=== PATIENT | male | born 1970 | race Caucasian/White ===

== ENCOUNTER 2020-03-05 08:52 | Outpatient (CLI) | payer BC, SELFPAY ==
--- NOTE | 2020-03-05 08:59 | XR_ITS ---
WS: [id number] Left knee, AP and lateral views, 03/05/2020 Clinical Data: CHRONIC PAIN OF BOTH KNEES Comparison: Left knee x-ray, 12/17/2014. Findings: There is narrowing of the medial joint compartment with osteoarthritic spurring of the medial tibial plateau and medial femoral condyle. The posterior patella shows large spurs. There is moderate narrow ing of the lateral joint compartment. No fractures are seen. The soft tissues are normal. XR/XR knee LT 1-2V [id number] Impression: Severe osteoarthritic change of the left knee which remains same.
--- NOTE | 2020-03-05 08:59 | XR_ITS ---
WS: [id number] Right knee, AP and lateral views, 03/05/2020 Clinical Data: CHRONIC PAIN OF BOTH KNEES Comparison: Right knee, 12/17/2014. Findings: There is severe medial joint compartment narrowing. Moderate osteoarthritic change of the lateral wilbert nt compartment is seen. There are large posterior patellar spurs. Soft tissues are unremarkable. Ther e are no fractures or dislocations. XR/XR knee RT 1-2V 83106 Impression: Severe osteoarthritis of the right knee unchanged.
== END 2020-03-05 08:53 | disposition home or self-care (01) ==
LOC: RAD 08:58
PROVIDERS: PCP Registered Nurse; Visit Provider Registered Nurse
DX: M25.561 Pain in right knee (principal); M25.562 Pain in left knee; G89.29 Other chronic pain
CPT/HCPCS: 73560

== ENCOUNTER 2020-07-11 19:52 | Emergency (ER) | payer BC, SELFPAY ==
[2020-07-11 20:00] VITALS: BP 168/94; PULSE 109; RESP 18; TEMP 36.9; O2SAT 95; BMI 59.3
--- NOTE | 2020-07-11 20:41 | W.ED.SKABFB ---
HPI - Skin/Abscess/Foreign Bdy General: Chief complaint: Skin/Abscess/Foreign Body Stated complaint: rash Time Seen by Provider: 07/11/20 20:41 Source: patient Mode of arrival: ambulatory Limitations: no limitations History of Present Illness: HPI narrative: Patient started feeling poorly 3 to 4 days ago. Spouse states that he had a fever up to 103. Patient been seen at the COVID testing tent and was told that he was COVID negative. Today they noticed redness and erythema to the abdomen surrounding the umbilical hernia site. Patient appears unwell. Patient appears in no pain. Patient has a history of morbid obesity, umbilical hernia, osteoarthritis, hypertension. Review of Systems General: Reports: 10 or more systems reviewed and unremarkable except in HPI and below Skin/Breast: Reports: erythema Physical Exam Const: COMMON NORMALS: no acute distress and patient oriented x3 GENERAL APPEARANCE: cooperative HENMT: COMMON NORMALS: normocephalic and Normal external nose present HEAD & SCALP: normal to inspection and normocephalic NOSE: Normal external nose present MOUTH: Normal oral and palatal mucosa present THROAT: posterior oropharynx normal Eye: GENERAL EYE: appearance normal, both eyes and all related structures Neck/C-Spine: COMMON NORMALS: full ROM Chest: COMMONS NORMALS: normal inspection of the chest Resp: COMMON NORMALS: normal respiratory effort EFFORT & INSPECTION: Yes able to speak in complete sentences Cardio: COMMON NORMALS: regular rate and regular rhythm RATE: regular rate RHYTHM: regular rhythm GI: COMMON NORMALS: non-tender : COMMON NORMALS: Yes no CVA tenderness BLADDER/KIDNEY EXAM: Yes no CVA tenderness Back/Pelvis: COMMON NORMALS: no CVA tenderness and thoracic and lumbar spine normal to inspection Extremity: COMMON NORMALS: normal to inspection Neuro: COMMON NORMALS: patient oriented x3 and moves all extremities Psych: COMMON NORMALS: mental status grossly normal and cooperative Skin: NARRATIVE SKIN EXAM: Large area of erythema greater than 30 cm surrounding the umbilical hernia. Patient has a central crusted lesion to the hernia dome. Erythema is greater on the right than the left side. There is some ecchymosis on the distal edges of the right side of the erythema. Mild tenderness is noted with deep palpation. Respirations are even. Vital signs are stable. Course Vital Signs: Vital signs: Vital Signs Temperature 100.5 F H 07/11/20 21:05 Pulse Rate 93 07/11/20 22:00 Respiratory Rate 18 07/11/20 22:00 Blood Pressure 157/89 07/11/20 22:00 Pulse Oximetry 95 07/11/20 22:00 MDM - Skin/Abscess/Foreign Bdy MDM Narrative: Medical decision making narrative: Patient came in today for persistent fever. Patient had been tested for COVID 3 days ago and was negative. Patient just had the symptoms of the fever that he was concerned about. Today they noted some redness and inflammation to the lower abdominal wall. On exam patient has a umbilical hernia. Patient denies any problems with bowel or bladder issues. Patient has some mild tenderness to the area of redness. Differential diagnosis includes but not limited to cellulitis, sepsis, abscess, umbilical hernia. Laboratory values were unremarkable. Suspect probable cellulitis of the abdominal wall. Patient did have a wound to his protrusion from his umbilical hernia that was about a month old spouse said. She said it looked like it was getting better but now patient has developed the erythema to the surrounding area from the wound. Patient was medicated with ceftriaxone 2 g and 900 mg of clindamycin. We will continue patient on double coverage with cephalexin and clindamycin. Ultrasound of the area did not note an abscess formation at this time. No GI complaints were noted at this time and no significant abdominal pain not considering suspicion for strangulated hernia at this time then. Reviewed with patient recommendations and need for return or follow-up. Patient reported understanding. Lab Data: Labs: Lab Results 07/11/20 07/11/20 07/11/20 Range/Units 21:00 21:09 21:09 WBC 9.6 (4.0-10.0) 10^3/ uL RBC 4.77 (4.1-5.3) 10^6/u L Hgb 14.3 (11.7-16.6) g/dL Hct 44.8 (42.0-52.0) % MCV 93.9 (80-94) fL MCH 30.0 (28.0-34.0) pg MCHC 31.9 (30.0-36.0) g/dL RDW 13.2 (12.1-15.1) % Plt Count 154 (130-400) 10^3/c mm MPV 10.8 H (7.4-10.4) fL Neut % (Auto) 84.2 % Lymph % (Auto) 9.5 % [place] % (Auto) 5.7 % Eos % (Auto) 0.0 % Baso % (Auto) 0.3 % Neut # (Auto) 8.07 H (1.8-7.7) 10^3/u L Lymph # (Auto) 0.9 (0.8-4.8) 10^3/u L [place] # (Auto) 0.6 (0.2-0.9) 10^3/u L Eos # (Auto) 0.0 (0.0-0.8) 10^3/u L Baso # (Auto) 0.0 (0.0-0.1) 10^3/u L Nucleated RBC % (a uto) 0 % Nucleated RBCs # 0.0 /100WBC Sodium 129 L (136-145) mmol/L Potassium 3.6 (3.5-5.1) mmol/L Chloride 94 L (98-107) mmol/L Carbon Dioxide 25 (22-29) mmol/L Anion Gap 13.6 (5-19) BUN 11 (6-20) mg/dL Creatinine 0.7 (0.7-1.2) mg/dL GFR Calculation 120.4 (90-130) mL/min Glucose 140 H (65-115) mg/dL Calculated Osmolal ity 270 L (285-295) mOsm/k g Lactic Acid (0.5-2.2) mmol/L Calcium 9.0 (8.5-10.5) mg/dL Total Bilirubin 0.5 (0.15-1.2) mg/dL AST 31 (0-40) U/L ALT 46 H (0-41) U/L Alkaline Phosphata se 62 (40-130) IU/L Total Protein 7.8 (6.6-8.7) g/dL Albumin 3.6 (3.5-5.2) g/dL Globulin 4.2 (1.3-4.6) g/dL Urine Color Yellow (Yellow) Urine Appearance Clear (CLEAR) Urine pH 5 (5-7) Ur Specific Gravit y 1.015 (1.005-1.030) Urine Protein 1+ H (Negative) Urine Glucose (UA) Norm (Normal) Urine Ketones 1+ H (Negative) Urine Blood 2+ H (Negative) Urine Nitrate Negative (Negative) Urine Bilirubin 1+ H (Negative) Urine Urobilinogen 1 H (Negative) mg/dL Ur Leukocyte Rochelle ase Negative (Negative) Urine RBC 0-4 H (0-2) /hpf Urine WBC 0-4 H (0-5) /hpf Ur Squamous Epith Cells 5-10 H (0-5) /hpf Amorphous Sediment Not Reportable Urine Bacteria Trace (NONE) /hpf Hyaline Casts 0-4 H /lpf Urine Mucus 2+ /hpf 07/11/20 Range/Units 21:09 WBC (4.0-10.0) 10^3/ uL RBC (4.1-5.3) 10^6/u L Hgb (11.7-16.6) g/dL Hct (42.0-52.0) % MCV (80-94) fL MCH (28.0-34.0) pg MCHC (30.0-36.0) g/dL RDW (12.1-15.1) % Plt Count (130-400) 10^3/c mm MPV (7.4-10.4) fL Neut % (Auto) % Lymph % (Auto) % [place] % (Auto) % Eos % (Auto) % Baso % (Auto) % Neut # (Auto) (1.8-7.7) 10^3/u L Lymph # (Auto) (0.8-4.8) 10^3/u L [place] # (Auto) (0.2-0.9) 10^3/u L Eos # (Auto) (0.0-0.8) 10^3/u L Baso # (Auto) (0.0-0.1) 10^3/u L Nucleated RBC % (a uto) % Nucleated RBCs # /100WBC Sodium (136-145) mmol/L Potassium (3.5-5.1) mmol/L Chloride (98-107) mmol/L Carbon Dioxide (22-29) mmol/L Anion Gap (5-19) BUN (6-20) mg/dL Creatinine (0.7-1.2) mg/dL GFR Calculation (90-130) mL/min Glucose (65-115) mg/dL Calculated Osmolal ity (285-295) mOsm/k g Lactic Acid 1.4 (0.5-2.2) mmol/L Calcium (8.5-10.5) mg/dL Total Bilirubin (0.15-1.2) mg/dL AST (0-40) U/L ALT (0-41) U/L Alkaline Phosphata se (40-130) IU/L Total Protein (6.6-8.7) g/dL Albumin (3.5-5.2) g/dL Globulin (1.3-4.6) g/dL Urine Color (Yellow) Urine Appearance (CLEAR) Urine pH (5-7) Ur Specific Gravit y (1.005-1.030) Urine Protein (Negative) Urine Glucose (UA) (Normal) Urine Ketones (Negative) Urine Blood (Negative) Urine Nitrate (Negative) Urine Bilirubin (Negative) Urine Urobilinogen (Negative) mg/dL Ur Leukocyte Rochelle ase (Negative) Urine RBC (0-2) /hpf Urine WBC (0-5) /hpf Ur Squamous Epith Cells (0-5) /hpf Amorphous Sediment Urine Bacteria (NONE) /hpf Hyaline Casts /lpf Urine Mucus /hpf Discharge Plan Discharge Patient Disposition: Home Clinical Impression: Cellulitis Qualifiers: Site of cellulitis: trunk Site of cellulitis of trunk: abdominal wall Qualified Code(s): L03.311 - Cellulitis of abdominal wall Condition: Stable Prescriptions: New clindamycin HCl 300 mg capsule 300 mg PO Q6H 10 Days Qty: 40 RF: 0 cephalexin 500 mg capsule 500 mg PO Q6H 10 Days Qty: 40 RF: 0 Discharge Orders: Discharge Order (Routine); Ordered 07/11/20 Ordered By: Jonathan Weaver Referrals: Theresa Escalante [Primary Care Provider] - Discharge Diet: Usual diet Discharge Activity: Increase activity as tolerated Patient Instructions: Cellulitis (ED) Activity Restrictions/Additional Instructions: Drink plenty of fluids with antibiotics. Healthy diet. Follow-up with primary care for further evaluation. Monitor for persistent fever, worsening pain, blood in vomit or stool, inability to hold down fluids. Return to the emergency department for new concerns. Coding Level of Care Code ED Recreation Therapy Teacher for Mildred Fwd Exam Comprehensive
[2020-07-11 21:05] VITALS: BP 160/71; PULSE 96; RESP 18; TEMP 38.1; O2SAT 95
[2020-07-11] MEDS: sodium chloride 0.9% 1,000 ML 999 ML IV (21:17)
[2020-07-11 21:26] LABS: Basophils % 0.3 %; Hematocrit 44.8 % (42.0-52.0); Hemoglobin 14.3 g/dL (11.7-16.6); Lymphocytes # 0.9 10^3/uL (0.8-4.8); Lymphocytes % 9.5 %; Mean Corpuscular HGB Conc 31.9 g/dL (30.0-36.0); Mean Corpuscular Volume 93.9 fL (80-94); Mean Platelet Volume 10.8 fL (7.4-10.4); Monocytes # 0.6 10^3/uL (0.2-0.9); Monocytes % 5.7 %; Neutrophils # 8.07 10^3/uL (1.8-7.7); Neutrophils % 84.2 %; Nucleated Red Blood Cells % 0 %; Platelet Count 154 10^3/cmm (130-400); Red Blood Count 4.77 10^6/uL (4.1-5.3); Red Cell Distribution Width 13.2 % (12.1-15.1); White Blood Count 9.6 10^3/uL (4.0-10.0)
[2020-07-11 21:30] VITALS: BP 161/104; PULSE 94; RESP 17; O2SAT 98
[2020-07-11 21:36] LABS: Glucose Urine UA Norm (Normal); Ketones Urine 1+ (Negative); Protein Urine 1+ (Negative); Specific Gravity, Urine 1.015 (1.005-1.030); Urine Appearance Clear (CLEAR); Urine Color Yellow (Yellow); pH Urine 5 (5-7)
[2020-07-11 21:37] LABS: Alanine Aminotransferase 46 U/L (0-41); Albumin Level 3.6 g/dL (3.5-5.2); Alkaline Phosphatase 62 IU/L (40-130); Anion Gap 13.6 (5-19); Aspartate Amino Transferase 31 U/L (0-40); Blood Urea Nitrogen 11 mg/dL (6-20); Carbon Dioxide 25 mmol/L (22-29); Chloride 94 mmol/L (98-107); Globulin 4.2 g/dL (1.3-4.6); Glomerular Filtration Rate 120.4 mL/min (90-130); Glucose 140 mg/dL (65-115); Lactic Sepsis W/Reflex 1.4 mmol/L (0.5-2.2); Osmolality Calculated 270 mOsm/kg (285-295); Potassium 3.6 mmol/L (3.5-5.1); Sodium 129 mmol/L (136-145); Total Bilirubin 0.5 mg/dL (0.15-1.2); Total Protein 7.8 g/dL (6.6-8.7)
[2020-07-11 21:37] LABS: Add Urine Microscopic? YES; Bilirubin Urine 1+ (Negative); Blood Urine 2+ (Negative); Leukocyte Esterase Urine Negative (Negative); Nitrate Urine Negative (Negative); Urobilinogen Urine 1 mg/dL (Negative)
[2020-07-11] MEDS: ibuprofen 600 mg Tablet PO (21:49)
[2020-07-11 21:50] LABS: Bacteria Urine TRACE /hpf; Mucus Urine 2+ /hpf; RBC Urine 0-4 /hpf (0-2); WBC Urine 0-4 /hpf (0-5)
[2020-07-11] MEDS: cefTRIAXone 2,000 MG in sodium chloride 0.9% (plus) 50 ML 100 MG IV (21:50)
[2020-07-11 21:51] LABS: Add Urine Culture? No; Hyaline Casts Urine 0-4 /lpf
--- NOTE | 2020-07-11 21:56 | USR_ITS ---
PROCEDURE INFORMATION: Exam: US Abdomen, Limited; Soft Tissue Exam date and time: 07/11/2020 9:58 PM Age: 49 years old Clinical indication: Abdominal pain; Other: Umbilical hernia above the skins surface; Additional info: Umbilical hernia, cellulitis, abscess TECHNIQUE: Imaging protocol: US abdomen. Real time ultrasound with image documentation. Limited exam focused on the soft tissues. COMPARISON: US Renal Kidney Structu* [id number] 08/10/2017 1:43 PM FINDINGS: Intraperitoneal space: No visible loculated fluid collection to suggest the presence of a seroma, hematoma, or abscess. No visible solid mass. US/US abdomen limited 20220 IMPRESSION: No visible abscess.
[2020-07-11 22:00] VITALS: BP 157/89; PULSE 93; RESP 18; O2SAT 95
[2020-07-11] MEDS: clindamycin 900 MG/50 ML PREMIX 100 MG IV (22:17)
[2020-07-11 23:11] VITALS: BP 151/89; PULSE 102; RESP 18; O2SAT 96
== END 2020-07-11 23:13 | disposition home or self-care (01) ==
PROVIDERS: Emergency Provider Nurse Practitioner Family; PCP Registered Nurse
DX: L03.311 Cellulitis of abdominal wall (principal)
CPT/HCPCS: 12345; 36415; 76705; 80053; 81001; 83605; 85025; 87040; 87077; 87205; 96365; 96367; 99283; 99284; J0696; J3490; J7030

== ENCOUNTER 2020-07-28 13:28 | Outpatient (CLI) | payer BC, SELFPAY | END 2020-07-28 13:29 | disposition home or self-care (01) | LOC: WOUND 13:29 | PROVIDERS: PCP Registered Nurse; Visit Provider Thoracic Surgery (Cardiothoracic Vascular Surgery) | DX: L03.311 Cellulitis of abdominal wall (principal); L98.492 Non-pressure chronic ulcer of skin of other sites with fat layer exposed | CPT/HCPCS: 11042; G0463 ==

== ENCOUNTER 2020-08-04 15:02 | Outpatient (CLI) | payer BC, SELFPAY | END 2020-08-04 15:03 | disposition home or self-care (01) | LOC: WOUND 15:03 | PROVIDERS: PCP Registered Nurse; Visit Provider Thoracic Surgery (Cardiothoracic Vascular Surgery) | DX: L03.311 Cellulitis of abdominal wall (principal); L98.492 Non-pressure chronic ulcer of skin of other sites with fat layer exposed | CPT/HCPCS: 11042 ==

== ENCOUNTER 2020-09-30 14:38 | Outpatient (CLI) | payer BC, SELFPAY | END 2020-09-30 14:39 | disposition home or self-care (01) | LOC: WOUND 14:39 | PROVIDERS: PCP Registered Nurse; Visit Provider Thoracic Surgery (Cardiothoracic Vascular Surgery) | DX: L03.311 Cellulitis of abdominal wall (principal); L98.491 Non-pressure chronic ulcer of skin of other sites limited to breakdown of skin | CPT/HCPCS: 11042 ==

== ENCOUNTER 2020-10-07 09:45 | Outpatient (CLI) | payer BC, SELFPAY | END 2020-10-07 09:46 | disposition home or self-care (01) | LOC: WOUND 09:46 | PROVIDERS: PCP Registered Nurse; Visit Provider Thoracic Surgery (Cardiothoracic Vascular Surgery) | DX: L03.311 Cellulitis of abdominal wall (principal); L98.492 Non-pressure chronic ulcer of skin of other sites with fat layer exposed | CPT/HCPCS: 11042 ==

== ENCOUNTER 2020-10-14 09:33 | Outpatient (CLI) | payer BC, SELFPAY | END 2020-10-14 09:34 | disposition home or self-care (01) | LOC: WOUND 09:34 | PROVIDERS: PCP Registered Nurse; Visit Provider Thoracic Surgery (Cardiothoracic Vascular Surgery) | DX: L03.311 Cellulitis of abdominal wall (principal); L98.492 Non-pressure chronic ulcer of skin of other sites with fat layer exposed | CPT/HCPCS: 11042 ==

== ENCOUNTER 2023-02-21 22:32 | Emergency (ER) | payer BC, SELFPAY ==
[2023-02-21 22:47] VITALS: BP 202/99; PULSE 112; RESP 18; TEMP 36.9; O2SAT 96; BMI 61.9
[2023-02-21 22:53] VITALS: PULSE 90; RESP 22; O2SAT 96
--- NOTE | 2023-02-21 22:59 | W.ED.ABDPA2 ---
HPI - Abdominal Pain General: Chief Complaint: Abdominal Pain Stated Complaint: Thinks has Staf Infection\ABD Pain Time Seen by Provider: 02/21/23 22:56 History of Present Illness: 52-year-old male patient comes in today with redness and tenderness to the pannus of the lower abdomen. Patient reports he had used a weed eater on Tuesday then yesterday he started having increased redness and irritation. 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 Patient has been told he has had staph in the area with prior treatment. Patient appears nontoxic. Patient does report some chills. Patient has a history of morbid obesity, umbilical hernia, osteoarthritis, and hypertension. Associated Symptoms: Reports chills; Denies constipation, diarrhea, nausea and vomiting Review of Systems General: Reports: 10 or more systems reviewed and unremarkable except in HPI and below Const: Reports: chills Card: Denies: chest pain Resp: Denies: dyspnea GI: Denies: nausea, vomiting, diarrhea or constipation : Denies: difficulty urinating Musc: Denies: neck pain or back pain Skin/Breast: Denies: rash Physical Exam Const: COMMON NORMALS: alert HENMT: COMMON NORMALS: normocephalic HEAD & SCALP: normocephalic MOUTH: Normal oral and palatal mucosa present Neck/C-Spine: COMMON NORMALS: full ROM Resp: COMMON NORMALS: normal respiratory effort and clear to auscultation bilaterally AUSCULTATION: clear to auscultation bilaterally Cardio: COMMON NORMALS: regular rate and regular rhythm RATE: regular rate RHYTHM: regular rhythm GI: INSPECTION: Yes Abdominal panniculus present and Yes other (Chronic ulcer umbilicus) AUSCULTATION: Yes normoactive bowel sounds OTHER: Extensive redness and induration to the lower abdomen : COMMON NORMALS: Yes no CVA tenderness BLADDER/KIDNEY EXAM: Yes no CVA tenderness Back/Pelvis: COMMON NORMALS: no CVA tenderness Extremity: COMMON NORMALS: normal to inspection Neuro: SENSORIUM/ORIENTATION: Yes alert Skin: COMMON NORMALS: turgor normal NARRATIVE SKIN EXAM: Redness and induration to the lower abdomen GENERAL SKIN EXAM: turgor normal Course Vital Signs: Vital signs: Vital Signs Temperature 98.4 F 02/21/23 22:47 Pulse Rate 112 H 02/21/23 22:47 Respiratory Rate 18 02/21/23 22:47 Blood Pressure 202/99 02/21/23 22:47 Pulse Oximetry 96 02/21/23 22:47 Oxygen Delivery Me thod Room Air 02/21/23 22:47 MDM - Abdominal Pain Medical Decision Making Patient comes in due to increasing redness and tenderness to the lower abdomen. Patient has a history of a chronic wound to his umbilicus. Patient noticed 2 days ago after weed eating he started having some redness and tenderness to the lower part of the abdomen since then he has had increasing erythema spreading across the pannus. On exam there is some induration and tenderness to the lower part of the pannus. Differential diagnosis includes but not limited to intertrigo, cellulitis, chronic wound infection. Laboratory values noted a 16,000 white count, CRP was 23, sodium was 132, glucose was 141. We will treat patient for abdominal wall cellulitis with dual coverage for strep and staph. Patient will be placed on Augmentin 875 and Bactrim DS. 1 tablet twice a day for 7 days. Patient was recommended to follow-up with primary care in 3 days for recheck, and return to the ER for worsening symptoms. Patient reported understanding agreed to plan. Lab Data 02/21/23 23:02/21/23: Labs/Radiology: Laboratory Results WBC 16.0 10^3/uL (4.0-10.0) H 02/21/23: RBC 4.94 10^6/uL (4.1-5.3) 02/21/23: Hgb 15.0 g/dL (11.7-16.6) 02/21/23: Hct 45.9 % (42.0-52.0) 02/21/23: MCV 92.9 fl (80-94) 02/21/23: MCH 30.4 pg (28.0-34.0) 02/21/23: MCHC 32.7 g/dL (30.0-36.0) 02/21/23: RDW 13.2 % (12.1-15.1) 02/21/23: Plt Count 166 10^3/cmm (130-400) 02/21/23: MPV 11.1 fL (7.4-10.4) H 02/21/23 23: Neut % (Auto) 87.5 % 02/21/23 23: Lymph % (Auto) 6.8 % 02/21/23: [place] % (Auto) 4.9 % 02/21/23: Eos % (Auto) 0.1 % 02/21/23: Baso % (Auto) 0.3 % 02/21/23: Neut # (Auto) 14.00 10^3/uL (1.8-7.7) H 02/21/23: Lymph # (Auto) 1.1 10^3/uL (0.8-4.8) 02/21/23: [place] # (Auto) 0.8 10^3/uL (0.2-0.9) 02/21/23 Eos # (Auto) 0.0 10^3/uL (0.0-0.8) 02/21/23 Baso # (Auto) 0.1 10^3/uL (0.0-0.1) 02/21/23 Nucleated RBC % (auto) 0 % 02/21/23 Nucleated RBCs # 0.0 /100WBC 02/21/23: Sodium 132 mmol/L (136-145) L 02/21/23: Potassium 3.8 mmol/L (3.5-5.1) 02/21/23: Chloride 98 mmol/L (98-107) 02/21/23: Carbon Dioxide 23 mmol/L (22-29) 02/21/23: Anion Gap 14.8 (5-19) 02/21/23: BUN 15 mg/dL (6-20) 02/21/23: Creatinine 0.7 mg/dL (0.7-1.2) 02/21/23 GFR Calculation 118.9 mL/min (90-130) 02/21/23: Glucose 141 mg/dL (65-115) H 02/21/23: Calculated Osmolality 277 mOsm/kg (285-295) L 02/21/23: Calcium 8.8 mg/dL (8.5-10.5) 02/21/23 23:29 Total Bilirubin 0.8 mg/dL (0.15-1.2) 02/21/23 23:29 AST 63 U/L (0-40) H 02/21/23 23:29 ALT 71 U/L (0-41) H 02/21/23 23:29 Alkaline Phosphatase 65 U/L (40-130) 02/21/23 23:29 C-Reactive Protein 22.8 mg/L (0.0-4.9) H 02/21/23 23:29 Total Protein 7.1 g/dL (6.6-8.7) 02/21/23 23: Albumin 3.6 g/dL (3.5-5.2) 02/21/23 23: Globulin 3.5 g/dL (1.3-4.6) 02/21/23 23:29 Discharge Plan Discharge Patient Disposition: Home Clinical Impression: Abdominal wall cellulitis Chronic wound infection of abdomen Qualifiers: Encounter type: initial encounter Qualified Code(s): S31.109A - Unspecified open wound of abdominal wall, unspecified quadrant without penetration into peritoneal cavity, initial encounter Condition: Stable Prescriptions: New amoxicillin-pot clavulanate 875-125 mg tablet 1 tab PO BID Qty: 14 0RF Bactrim DS 800-160 mg tablet 1 tab PO DAILY 7 Days Qty: 14 0RF hydrocodone-acetaminophen 5-325 mg tablet 1 tab PO Q8H PRN (Reason: pain (scale score 7-10)) Qty: 10 0RF Discharge Orders: Discharge ED (Routine); Ordered 02/22/23 Ordered By: Jonathan Weaver Referrals: Tea Mcknight DO [Primary Care Provider] - Discharge Diet: Usual diet Discharge Activity: Increase activity as tolerated Patient Instructions: Cellulitis (ED) Activity Restrictions/Additional Instructions: Take both antibiotics as directed. Drink plenty of water with antibiotics. Activity as tolerated. Follow-up with primary care in 2 to 3 days for recheck. Return to emergency department for worsening symptoms such as inability to hold fluids down, worsening abdominal pain, or new concerns. Coding Level of Care Code ED Marriage Counselor Minister for Mildred Carpenter
[2023-02-21] MEDS: cefTRIAXone 1,000 MG in sodium chloride 0.9% (plus) 50 ML 100 MG IV (23:32)
[2023-02-21 23:34] LABS: Basophils # 0.1 10^3/uL (0.0-0.1); Basophils % 0.3 %; Eosinophils % 0.1 %; Hematocrit 45.9 % (42.0-52.0); Lymphocytes # 1.1 10^3/uL (0.8-4.8); Lymphocytes % 6.8 %; Mean Corpuscular HGB Conc 32.7 g/dL (30.0-36.0); Mean Corpuscular Hemoglobin 30.4 pg (28.0-34.0); Mean Corpuscular Volume 92.9 fl (80-94); Mean Platelet Volume 11.1 fL (7.4-10.4); Monocytes # 0.8 10^3/uL (0.2-0.9); Monocytes % 4.9 %; Neutrophils % 87.5 %; Nucleated Red Blood Cells % 0 %; Platelet Count 166 10^3/cmm (130-400); Red Blood Count 4.94 10^6/uL (4.1-5.3); Red Cell Distribution Width 13.2 % (12.1-15.1)
[2023-02-21 23:57] LABS: Alanine Aminotransferase 71 U/L (0-41); Albumin Level 3.6 g/dL (3.5-5.2); Alkaline Phosphatase 65 U/L (40-130); Anion Gap 14.8 (5-19); Aspartate Amino Transferase 63 U/L (0-40); Blood Urea Nitrogen 15 mg/dL (6-20); C Reactive Protein 22.8 mg/L (0.0-4.9); Calcium 8.8 mg/dL (8.5-10.5); Carbon Dioxide 23 mmol/L (22-29); Chloride 98 mmol/L (98-107); Globulin 3.5 g/dL (1.3-4.6); Glomerular Filtration Rate 118.9 mL/min (90-130); Glucose 141 mg/dL (65-115); Osmolality Calculated 277 mOsm/kg (285-295); Potassium 3.8 mmol/L (3.5-5.1); Sodium 132 mmol/L (136-145); Total Bilirubin 0.8 mg/dL (0.15-1.2); Total Protein 7.1 g/dL (6.6-8.7)
[2023-02-22] MEDS: sulfamethoxazole-trimeth DS 160-800 mg Tablet 1 TAB PO (00:01)
[2023-02-22] MEDS: HYDROcodone-acetaminophen 7.5-325 mg Tablet 1 TAB PO (00:01)
[2023-02-22 00:42] VITALS: BP 179/79; PULSE 90; RESP 22; O2SAT 95
== END 2023-02-22 00:29 | disposition home or self-care (01) ==
PROVIDERS: Emergency Provider Nurse Practitioner Family; PCP Family Medicine
DX: L03.311 Cellulitis of abdominal wall (principal); S31.109A Unspecified open wound of abdominal wall, unspecified quadrant without penetration into peritoneal cavity, initial encounter; X58.XXXA Exposure to other specified factors, initial encounter
CPT/HCPCS: 80053; 85025; 86140; 96365; 99284; J0696

== ENCOUNTER → 2024-08-17 10:32 | Outpatient (BNVA) | payer OTHER, SELFPAY | PROVIDERS: PCP Family Medicine; Visit Provider Physician Assistant | DX: M25.561 Pain in right knee (principal); M25.562 Pain in left knee; M17.0 Bilateral primary osteoarthritis of knee | CPT/HCPCS: 73560; 73565 ==

== ENCOUNTER 2024-09-18 19:29 | Emergency (ER) | payer OTHER, SELFPAY ==
[2024-09-18 19:35] VITALS: BP 134/86; PULSE 102; RESP 18; TEMP 37.3; O2SAT 93
[2024-09-18 20:00] VITALS: BP 157/96; PULSE 94; O2SAT 97
--- NOTE | 2024-09-18 20:20 | W.ED.WOUNDLC ---
HPI - Wound/Laceration General: Chief Complaint: Wound/Laceration Stated Complaint: fever Time Seen by Provider: 09/18/24 20:11 Source: patient Mode of arrival: ambulatory Limitations: no limitations History of Present Illness: 53-year-old male has had a history of an abdominal umbilical hernia he states he has had it for years he states that he has had a small area open and has had some erythema onto his lower abdomen. He has had fevers at home as well. He has some slight pain he states that he has not had the hernia repaired as they told him he needs to lose weight before they able to do it. Denies any worse improving factors. Associated symptoms: Denies chills, fever(s), nausea or vomiting Related Data Home Medications Medication Instructions Recorded Confirmed albuterol sulfate 90 mcg/actuation 2 puff inhalation Q6H PRN 06/18/23 08/17/24 aerosol inhaler budesonide-formoterol HFA 160 2 puff inhalation BID 06/18/23 08/17/24 mcg-4.5 mcg/actuation aerosol inhaler bumetanide 2 mg tablet 2 mg PO DAILY 06/18/23 08/17/24 escitalopram oxalate 20 mg tablet 20 mg PO DAILY 06/18/23 08/17/24 meloxicam 15 mg tablet 15 mg PO DAILY 06/18/23 08/17/24 tramadol 50 mg tablet 50 mg PO DAILY 06/18/23 08/17/24 Previous Rx's Medication Instructions Recorded hydrocodone 5 mg-acetaminophen 325 1 tab PO Q4H PRN pain 5 days #20 06/18/23 mg tablet tabs sulfamethoxazole 800 1 tab PO BID 10 days #20 tabs 06/18/23 mg-trimethoprim 160 mg tablet (Bactrim DS) cephalexin 500 mg capsule 500 mg PO TID 7 days #21 caps 09/18/24 mupirocin 2 % topical ointment 1 applic topical TID #22 grams 09/18/24 Allergies Allergy/AdvReac Type Severity Reaction Status Date / Time No Known Allergies Allergy Verified 09/18/24 19:41 Review of Systems Const: Denies: fever(s), chills, body aches or change in appetite ENMT: Denies: throat pain or dental pain Card: Denies: chest pain Resp: Denies: dyspnea GI: Reports: abdominal pain; Denies: nausea, vomiting or diarrhea Musc: Denies: neck pain or back pain Skin/Breast: Reports: erythema; Denies: rash Neuro: Denies: headache(s) PFSH ED PFSH: Social History Smoking and tobacco/nicotine status: never used tobacco/nicotine Physical Exam Const: COMMON NORMALS: no acute distress, patient oriented x3 and healthy appearing HENMT: COMMON NORMALS: normocephalic and atraumatic HEAD & SCALP: normocephalic and atraumatic Eye: COMMON NORMALS: conjunctivae normal CONJUNCTIVA: Yes conjunctivae normal Neck/C-Spine: COMMON NORMALS: full ROM and supple Chest: COMMONS NORMALS: normal inspection of the chest Resp: COMMON NORMALS: normal respiratory effort, No use of accessory muscles and clear to auscultation bilaterally AUSCULTATION: clear to auscultation bilaterally Cardio: COMMON NORMALS: regular rate RATE: regular rate GI: COMMON NORMALS: Soft to palpation and no masses PALPATION: Yes Soft to palpation OTHER: Umbilical hernia noted does have a small opening with no drainage at this time has some erythema to right lower abdomen Extremity: COMMON NORMALS: normal to inspection and full ROM Neuro: COMMON NORMALS: patient oriented x3, moves all extremities and no focal motor deficits Psych: COMMON NORMALS: mental status grossly normal, Normal thought process present and cooperative THOUGHT PROCESS: Normal thought process present Skin: COMMON NORMALS: no rashes or lesions noted and no wounds GENERAL SKIN EXAM: no rashes or lesions noted Course Vital Signs: Vital signs: Vital Signs Temperature 99.1 F 09/18/24 19:35 Pulse Rate 102 H 09/18/24 19:35 Respiratory Rate 22 H 09/18/24 20:48 Blood Pressure 134/86 09/18/24 19:35 Pulse Oximetry 96 09/18/24 20:48 Oxygen Delivery Me thod Room Air 09/18/24 19:35 MDM - Wound/Laceration Medical Decision Making Patient presents for chronic umbilical hernia no signs of obstruction does have a cellulitis to his lower abdomen I did offer him admission he states he wants to trial antibiotics at home first to give him a dose of antibiotic here we will prescribe him Keflex along with bacitracin ointment he is to follow-up with PCP's return if worsening he understands agrees to plan. Medical Records I reviewed the patient's medical records. Lab Data I reviewed the patient's lab results. 09/18/24 20:33 09/18/24 20:33 Laboratory Results WBC 12.38 10^3/uL (3.29-11.43) H 09/18/24 20:33 RBC 5.19 10^6/uL (3.85-5.65) 09/18/24 20:33 Hgb 15.70 g/dL (11.27-16.99) 09/18/24 20:33 Hct 48.7 % (37-53) 09/18/24 20:33 MCV 93.8 fl (82-101) 09/18/24 20: MCH 30.3 pg (27-33) 09/18/24 20: MCHC 32.2 g/dL (30-55) 09/18/24 20:33 RDW 12.7 % (12.1-15.1) 09/18/24 20:33 Plt Count 172 10^3/cmm (157-399) 09/18/24 20:33 MPV 10.3 fL (7.4-10.4) 09/18/24 20:33 Neut % (Auto) 88.1 % 09/18/24 20:33 Lymph % (Auto) 6.1 % 09/18/24 20:33 [place] % (Auto) 5.0 % 09/18/24 20:33 Eos % (Auto) 0.2 % 09/18/24 20:33 Baso % (Auto) 0.2 % 09/18/24 20:33 Neut # (Auto) 10.89 10^3/uL (1.8-7.7) H 09/18/24 20:33 Lymph # (Auto) 0.8 10^3/uL (0.8-4.8) 09/18/24 20:33 [place] # (Auto) 0.6 10^3/uL (0.2-0.9) 09/18/24 20:33 Eos # (Auto) 0.0 10^3/uL (0.0-0.8) 09/18/24 20:33 Baso # (Auto) 0.0 10^3/uL (0.0-0.1) 09/18/24 20:33 Nucleated RBC % (auto) 0 % 09/18/24 20:33 Nucleated RBCs # 0.0 /100WBC 09/18/24 20:33 Sodium 135 mmol/L (136-145) L 09/18/24 20:33 Potassium 4.2 mmol/L (3.5-5.1) 09/18/24 20:33 Chloride 98 mmol/L (98-107) 09/18/24 20:33 Carbon Dioxide 26 mmol/L (22-29) 09/18/24 20:33 Anion Gap 15.2 (5-19) 09/18/24 20:33 BUN 14 mg/dL (6-20) 09/18/24 20:33 Creatinine 0.9 mg/dL (0.7-1.2) 09/18/24 20:33 GFR Calculation 88.6 mL/min (90-130) L 09/18/24 20:33 Glucose 112 mg/dL (65-115) 09/18/24 20:33 Calculated Osmolality 281 mOsm/kg (285-295) L 09/18/24 20:33 Calcium 8.9 mg/dL (8.5-10.5) 09/18/24 20:33 Total Bilirubin 0.7 mg/dL (0.15-1.2) 09/18/24 20:33 AST 20 U/L (0-40) 09/18/24 20:33 ALT 21 U/L (0-41) 09/18/24 20:33 Alkaline Phosphatase 66 U/L (40-130) 09/18/24 20:33 Total Protein 7.2 g/dL (6.6-8.7) 09/18/24 20:33 Albumin 3.7 g/dL (3.5-5.2) 09/18/24 20:33 Globulin 3.5 g/dL (1.3-4.6) 09/18/24 20:33 No radiology studies performed this visit Discharge Plan Discharge Patient Disposition: Home Clinical Impression: Abdominal wall cellulitis, Hernia, umbilical Condition: Stable Prescriptions: New cephalexin 500 mg capsule 500 mg PO TID 7 Days Qty: 21 0RF Continued mupirocin 2 % ointment 1 applic topical TID Qty: 22 0RF No Action meloxicam 15 mg tablet 15 mg PO DAILY budesonide-formoterol 160-4.5 mcg/actuation HFA aerosol inhaler 2 puff inhalation BID tramadol 50 mg tablet 50 mg PO DAILY bumetanide 2 mg tablet 2 mg PO DAILY albuterol sulfate 90 mcg/actuation HFA aerosol inhaler 2 puff inhalation Q6H PRN escitalopram oxalate 20 mg tablet 20 mg PO DAILY hydrocodone-acetaminophen 5-325 mg tablet 1 tab PO Q4H PRN (Reason: pain) 5 Days Qty: 20 0RF sulfamethoxazole-trimethoprim [Bactrim DS] 800-160 mg tablet 1 tab PO BID 10 Days Qty: 20 0RF Discharge Orders: Discharge ED (Routine); Ordered 09/18/24 Ordered By: Je Bolanos Referrals: Tea Mcknight DO [Primary Care Provider] - 4-7 days Discharge Diet: Advance as tolerated Discharge Activity: Resume usual activity Patient Instructions: Cellulitis (ED), Umbilical Hernia (ED) Coding Level of Care Code ED Survey Analyst for Mildred Carpenter
[2024-09-18 20:41] VITALS: BP 160/92; PULSE 89; O2SAT 92
[2024-09-18 20:44] LABS: Basophils % 0.2 %; Eosinophils % 0.2 %; Hematocrit 48.7 % (37-53); Lymphocytes # 0.8 10^3/uL (0.8-4.8); Lymphocytes % 6.1 %; Mean Corpuscular HGB Conc 32.2 g/dL (30-55); Mean Corpuscular Hemoglobin 30.3 pg (27-33); Mean Corpuscular Volume 93.8 fl (82-101); Mean Platelet Volume 10.3 fL (7.4-10.4); Monocytes # 0.6 10^3/uL (0.2-0.9); Neutrophils # 10.89 10^3/uL (1.8-7.7); Neutrophils % 88.1 %; Nucleated Red Blood Cells % 0 %; Platelet Count 172 10^3/cmm (157-399); Red Blood Count 5.19 10^6/uL (3.85-5.65); Red Cell Distribution Width 12.7 % (12.1-15.1); White Blood Count 12.38 10^3/uL (3.29-11.43)
[2024-09-18] MEDS: LORazepam 2 mg/mL INJ 1 mL 1 MG IVP (20:47)
[2024-09-18 20:48] VITALS: RESP 22; O2SAT 96
[2024-09-18] MEDS: HYDROmorphone 1 mg/mL INJ 1 mL IVP (20:48)
[2024-09-18] MEDS: VANCOMYCIN ADD-Vantage 1,000 MG in 0.9% NaCl ADD-Vantage 250 ML 250 MG IV (20:51)
[2024-09-18 21:00] LABS: Alanine Aminotransferase 21 U/L (0-41); Albumin Level 3.7 g/dL (3.5-5.2); Alkaline Phosphatase 66 U/L (40-130); Aspartate Amino Transferase 20 U/L (0-40); Blood Urea Nitrogen 14 mg/dL (6-20); Calcium 8.9 mg/dL (8.5-10.5); Carbon Dioxide 26 mmol/L (22-29); Chloride 98 mmol/L (98-107); Creatinine Clr Calc Pharmacy 182.6869; Globulin 3.5 g/dL (1.3-4.6); Glomerular Filtration Rate 88.6 mL/min (90-130); Glucose 112 mg/dL (65-115); Osmolality Calculated 281 mOsm/kg (285-295); Sodium 135 mmol/L (136-145); Total Bilirubin 0.7 mg/dL (0.15-1.2); Total Protein 7.2 g/dL (6.6-8.7)
[2024-09-18 21:05] LABS: Anion Gap 15.2 (5-19); Potassium 4.2 mmol/L (3.5-5.1)
[2024-09-18 21:41] VITALS: BP 157/88; PULSE 102; O2SAT 94
[2024-09-18] MEDS: cephALEXin 500 mg Capsule PO ×2 (21:59→22:00)
[2024-09-18 22:12] VITALS: BP 145/80; PULSE 90; O2SAT 96
== END 2024-09-18 22:14 | disposition home or self-care (01) ==
PROVIDERS: Emergency Provider Emergency Medicine; PCP Family Medicine
DX: L03.311 Cellulitis of abdominal wall (principal); K42.9 Umbilical hernia without obstruction or gangrene
CPT/HCPCS: 36415; 80053; 85025; 96374; 96375; 99284; J1171; J2060; J3370; J7050